=== PATIENT | female | born 2005 | race Hispanic/Latino ===

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

== ENCOUNTER 2024-11-23 08:22 | Emergency (ER) | payer OTHER, SELFPAY ==
[2024-11-23] MEDS ORDERED: Ketorolac Tromethamine 30 MG (1 mL) VIAL ONE (09:21)
[2024-11-23] MEDS ORDERED: Ondansetron PF 4 MG/2 ML Vial ONE (09:21)
[2024-11-23 09:25] LABS: #Basophils Less than 0.03 10x3/uL (0.0-0.2); #Eosinophils 0.12 10x3/uL (0.0-0.7); #Monocytes 0.68 10x3/uL (0.11-0.59); #Neutrophils 5.18 10x3/uL (1.40-6.50); %Basophils 0.1 % (0.0-1.0); %Eosinophils 1.8 % (0.0-10.0); %Lymphocytes 11.0 % (28.0-48.0); %Monocytes 10.1 % (0.0-4.0); %Neutrophils 76.7 % (31.0-61.0); Hematocrit 38.7 % (36.0-47.0); Hemoglobin 12.8 g/dL (12.0-16.0); Mean Corpuscular Hemoglobin 27.8 pg (25.0-35.0); Mean Corpuscular Volume 83.9 fL (78.0-98.0); Platelet Count 256 10x3/uL (130-400); Red Blood Cell (RBC) Count 4.61 mill/uL (4.00-5.20); White Blood Cell (WBC) Count 6.75 10x3/uL (4.8-10.8)
[2024-11-23 09:34] LABS: Pregnancy Test - Urine (BHCG) Negative (Negative); Pregu Control Background? CLEAR/WHITE (CLR/WHITE); Pregu Control Bar Appear? YES (CONTROL BAR)
[2024-11-23 09:40] LABS: ALT (SGPT) 10 U/L (Less than 34); AST (SGOT) 25 U/L (11-34); Albumin 4.3 g/dL (3.1-4.5); Alkaline Phosphatase 77 U/L (40-100); Anion Gap 14 mmol/L (10-20); BUN (Urea Nitrogen) Less than 4 mg/dL (7.0-18.7); Bilirubin, Total 0.5 mg/dL (0.3-1.2); Calc. Creatinine Clearance 0 mL/min (70-130); Calcium 9.5 mg/dL (7.8-10.44); Carbon Dioxide 27 mmol/L (22-29); Chloride 106 mmol/L (98-107); Globulin 2.8 g/dL (2.4-3.5); Glucose 88 mg/dL (70-105); Potassium 3.9 mmol/L (3.5-5.1); Sodium 143 mmol/L (136-145)
[2024-11-23 09:51] LABS: Bacteria/HPF 2+ HPF (None Seen); CAUTI Indications for Culture Dysuria,urgency,freq; Glucose, Urine (Dipstick) Normal (Negative); Leukocyte 250 Leu/uL (Negative); Protein, Urine (Dipstick) 30 mg/dL (Neg-Trace); RBC/HPF Greater than 50 HPF (0-3); Specific Gravity, Urine 1.009 (1.002-1.036); WBC/HPF 21-50 HPF (0-3)
[2024-11-23 09:55] LABS: Urine Culture Reflex Yes Yes
[2024-11-23] MEDS ORDERED: cefTRIAXone (ROCEPHIN) 1 GM VIAL ONE (10:45)
== END 2024-11-23 11:12 | disposition home or self-care (01) ==
LOC: ERS 08:22
DX: N39.0 Urinary tract infection, site not specified (principal)
CPT/HCPCS: 80053; 81001; 81025; 85025; 87086; 96374; 96375; J0696; J1885; J2405